=== PATIENT | female | born 1950 | race Caucasian/White ===

== ENCOUNTER 2019-03-26 08:21 | Emergency (ER) | payer MEDICARE, BC, SELFPAY ==
[2019-03-26 08:26] VITALS: BP 150/83; PULSE 73; RESP 16; TEMP 36.6; O2SAT 97
--- NOTE | 2019-03-26 08:34 | ED.GENADUL_ITS ---
Discharge Plan Disposition Patient Disposition: HOME Condition: Stable Discharge Details Chief Complaint: GenMedical Clinical Impression: Cellulitis of foot, left Primary Care Provider: Jesus Cardona ED Provider: Orlando Barbosa Home Meds and New Rx's Prescriptions: New cephalexin 500 mg tablet 500 mg PO TID Qty: 21 RF: 0 No Action amlodipine 2.5 mg Tablet RF: 0 Discharge Instructions Instructions: Cellulitis (ED) Additional Instructions: if not better by next week see your primary care provider if you feel you are becoming more ill, have severe worsening of pain, or redness spreading up the leg return to the emergency department Medical Decision Making 68 yo female comes in with left dorsal surface redness. no fevers or systemic symptoms and no recent falls or trauma, no severe pain. She has an area of erythema on the dorsum of the left foot 3x3cm and not significantly warm to touch. Sensation and pulses intact. No evidence of skin breakdown. Will tx as possible cellulitis though could also be localized dermatitis. She has no swelling of the leg to suggest dvt and no severe pain or fevers and appears well so doubt sepsis or nec fasc. Advised f/u with pcp and return precautions given Differential Diagnosis cellulitis, sebaceous cyst HPI General Mode of arrival: ambulatory . Date/Time Provider Initiated Documentation: 03/26/19 08:23 . Limitations to Documentation: no limitations . Information obtained by: patient . History of Present Illness 68 year old F presents to the emergency department with the chief complaint of left foot redness, described as moderate, Quality is described as aching, and is localized to the left and lower extremity. Patient reports no radiation. Patient started experiencing this day(s) (1) and it has been constant. No relieving factors improve symptom(s), No exacerbating factors reported . Patient notes no other symptoms.. Patient did receive the following treatments prior to arrival, none Related Data Home Medications Medication Instructions Recorded Confirmed amlodipine 03/26/19 cephalexin 500 mg PO TID #21 tab 03/26/19 Previous Rx's Medication Instructions Recorded cephalexin 500 mg PO TID #21 tab 03/26/19 Allergies Allergy/AdvReac Type Severity Reaction Status Date / Time acetaminophen [From Percocet] Allergy Mild Nausea Unverified 03/26/19 08:30 codeine Allergy Mild Nausea Unverified 03/26/19 08:30 oxycodone [From Percocet] Allergy Mild Nausea Unverified 03/26/19 08:30 General Stated Complaint: GenMedical MICHAEL: 4 Review of Systems Review of Systems All systems reviewed & are unremarkable except as noted in HPI and below Constitutional Denies chills, Denies fever(s) and Denies weakness Cardiovascular Denies chest pain and Denies dyspnea Respiratory Denies dyspnea Gastrointestinal Denies abdominal pain and Denies vomiting Neurologic Denies weakness PFSH Social History Smoking/Tobacco Use Status: Never Drug use: Occasionally Substance use type: does not use Do you feel safe at home: Yes Do you feel safe in your relationship?: Yes Exam Const General: no acute distress Orientation: alert HENMT Head: normal to inspection Ears: external ears normal General nose exam: external nose normal Mouth: moist mucous membranes Eyes General: appearance normal, both eyes and all related structures Neck Neck: normal visual inspection Resp Effort & Inspection: normal respiratory effort and able to speak in complete sentences Cardio Rate: regular rate Skin General skin exam: elasticity normal Neuro General: alert and oriented x3 Extrem General: full ROM and normal capillary refill Psych Mental Status: mental status grossly normal Course Vital Signs Temperature 36.6 C 03/26/19 08:26 Pulse 73 03/26/19 08:26 Respiratory Rate 16 03/26/19 08:26 Blood Pressure 150/83 H 03/26/19 08:26 Pulse Oximetry 97 03/26/19 08:26 Temperature 36.6 C 03/26/19 08:26 Temperature Source Temporal Artery Scan 03/26/19 08:26 Pulse 73 03/26/19 08:26 Respiratory Rate 16 03/26/19 08:26 Respiratory Effort 03/26/19 08:26 Blood Pressure 150/83 H 03/26/19 08:26 Blood Pressure Position Sitting 03/26/19 08:26 Pulse Oximetry 97 03/26/19 08:26 Oxygen Delivery Method Room Air 03/26/19 08:26 Oxygen Flow Rate 0 03/26/19 08:26
[2019-03-26 08:35] VITALS: RESP 14
== END 2019-03-26 08:40 | disposition home or self-care (01) ==
PROVIDERS: Emergency Provider Emergency Medicine; PCP Internal Medicine
DX: L03.116 Cellulitis of left lower limb (principal)
CPT/HCPCS: 99283

== ENCOUNTER 2019-04-01 09:47 | Emergency (ER) | payer MEDICARE, BC, SELFPAY ==
[2019-04-01] VITALS (7 sets, daily range): BP systolic 135–170; BP diastolic 67–82; PULSE 66–72; RESP 16; TEMP 36.6; O2SAT 95–97
--- NOTE | 2019-04-01 10:16 | DI.RAD_ITS ---
SYMPTOM/DIAGNOSIS: CELLULITIS, FOOT PAIN LEFT FOOT: Three views. No acute fracture or dislocation, lytic or sclerotic lesion is seen. No radiographic evidence to suggest acute osteomyelitis present. There are moderate degenerative changes seen in the foot particularly the mid foot and the first tarsal metatarsal joints. There is a moderate size spur at the plantar surface of the calcaneus. No radiopaque foreign bodies are seen in the soft tissues. IMPRESSION: No acute abnormality. No radiographic findings to suggest acute osteomyelitis.
--- NOTE | 2019-04-01 10:17 | ED.GENADUL_ITS ---
Discharge Plan Disposition Patient Disposition: HOME Condition: Stable Discharge Details Chief Complaint: GenMedical Clinical Impression: Cellulitis Primary Care Provider: Bety,Local ED Provider: Dany Shay Home Meds and New Rx's Prescriptions: New sulfamethoxazole-trimethoprim [Bactrim DS] 800-160 mg tablet 1 tab PO Q12H Qty: 20 RF: 0 cephalexin 500 mg capsule 500 mg PO QID Qty: 30 RF: 0 No Action amlodipine 2.5 mg Tablet 2.5 mg DAILY RF: 0 cephalexin 500 mg tablet 500 mg PO TID Qty: 21 RF: 0 Discharge Instructions Additional Instructions: Please keep a blood pressure log for the next week your blood pressure was mildly elevated in the emergency department your primary care doctor may need to titrate your hypertensive medications. We are going to continue and add a new antibiotic for your cellulitis please continue the cephalexin for an additional week & take Bactrim for 10 days. Please see a provider or the emergency department in 4 days for a wound check . return sooner for fever chills increasing pain or other concern Discharge Data Discharge Date/Time-TO BE ENTERED AT DEPARTURE: 04/01/19 11:09 Medical Decision Making 68 year-old female currently being treated for left foot cellulitis with continued redness mild tenderness in the setting of distant foot injections and fracture. Patient nontoxic with some mild tenderness to palpation to her midfoot will obtain an x-ray and if normal extend Keflex and add Bactrim and have patient follow-up for a wound check in the next 3 or 4 days. 1044 AM patient resting comfortably x-ray with no acute findings left foot. Patient with evidence of continued cellulitis I do not feel meets criteria for inpatient IV antibiotics at this time we will add Bactrim for expanded MRSA coverage and add another week of Keflex. Patient to return to the emergency department in 4 days for wound check or sooner for fever chills increasing redness or pain. Patient to follow-up with primary care and podiatry. HPI 68-year-old female past medical history of hypertension on amlodipine with 1 week of left foot redness and pain seen 6 days ago here at the [facility] emergency department and started on cephalexin patient returns pain is improved and the redness has decreased but not resolved and her last dose of antibiotics is tonight. 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 No shortness of breath chest pain fever chills nausea vomiting diarrhea loss of consciousness. General Date/Time Provider Initiated Documentation: 04/01/19 09:57 . Related Data Home Medications Medication Instructions Recorded Confirmed amlodipine 2.5 mg DAILY 03/26/19 04/01/19 cephalexin 500 mg PO TID #21 tab 03/26/19 04/01/19 cephalexin 500 mg PO QID #30 cap 04/01/19 sulfamethoxazole-trimethoprim 1 tab PO Q12H #20 tab 04/01/19 [Bactrim DS] Previous Rx's Medication Instructions Recorded cephalexin 500 mg PO TID #21 tab 03/26/19 cephalexin 500 mg PO QID #30 cap 04/01/19 sulfamethoxazole-trimethoprim 1 tab PO Q12H #20 tab 04/01/19 [Bactrim DS] Allergies Allergy/AdvReac Type Severity Reaction Status Date / Time acetaminophen [From Percocet] Allergy Mild Nausea Unverified 03/26/19 08:30 codeine Allergy Mild Nausea Unverified 03/26/19 08:30 oxycodone [From Percocet] Allergy Mild Nausea Unverified 03/26/19 08:30 General Stated Complaint: GenMedical MICHAEL: 4 Review of Systems Review of Systems All systems reviewed & are unremarkable except as noted in HPI and below PFSH Social History Smoking/Tobacco Use Status: Never Drug use: Occasionally Substance use type: does not use Do you feel safe at home: Yes Do you feel safe in your relationship?: Yes Exam Const General: cooperative, healthy appearing, no acute distress, well developed and well groomed Nutritional Appearance: well nourished Orientation: alert, awake and oriented x3 HENMT Head: normal to inspection, normocephalic and atraumatic Ears: hearing grossly normal bilaterally and external ears normal General nose exam: external nose normal Face and sinus: normal facial exam Mouth: oral mucosae normal and lip normal Chest Chest: normal inspection of the chest Resp Effort & Inspection: normal respiratory effort and able to speak in complete sentences Cardio Jugular venous pressure: no JVD Rate: regular rate GI Inspection: normal to inspection Palpation: soft, firm and guarding Percussion: normal to percussion Skin General skin exam: no rashes or lesions noted Lesions: no lesions Rashes: no rashes Trauma: no lacerations or abrasions Neuro General: alert, awake and oriented x3 Cognition: normal cognition Motor: muscle tone normal throughout Sensory Exam: no sensory deficits noted Extrem General: normal to inspection and other (Left foot with a 3 cm diameter area of redness without fluctuance or indura) Right upper extremity: normal to inspection Left upper extremity: normal to inspection Right lower extremity: normal to inspection Left lower extremity: normal to inspection Psych Appearance: grossly normal Mental Status: mental status grossly normal Speech and Movement: speech and movement normal Course Vital Signs Temperature 36.6 C 04/01/19 09:53 Pulse 71 04/01/19 09:53 Respiratory Rate 16 04/01/19 09:53 Blood Pressure 168/82 H 04/01/19 09:53 Pulse Oximetry 96 04/01/19 09:53 Temperature 36.6 C 04/01/19 09:53 Temperature Source Skin 04/01/19 09:53 Pulse 71 04/01/19 09:53 Respiratory Rate 16 04/01/19 09:53 Respiratory Effort 04/01/19 10:00 Blood Pressure 168/82 H 04/01/19 09:53 Blood Pressure Position Sitting 04/01/19 09:53 Pulse Oximetry 96 04/01/19 09:53 Oxygen Delivery Method Room Air 04/01/19 09:53 Oxygen Flow Rate 0 04/01/19 09:53
== END 2019-04-01 11:09 | disposition home or self-care (01) ==
PROVIDERS: Emergency Provider Emergency Medicine
DX: L03.116 Cellulitis of left lower limb (principal); I10 Essential (primary) hypertension
CPT/HCPCS: 99283; 73630

== ENCOUNTER 2022-05-06 16:27 | Emergency (ER) | payer MEDICARE, BC, SELFPAY ==
[2022-05-06] VITALS (39 sets, daily range): BP systolic 134–166; BP diastolic 63–112; PULSE 57–80; RESP 11–26; TEMP 36.4; O2SAT 95–99
--- NOTE | 2022-05-06 16:15 | RT.EKG_ITS ---
APPROVED REPORT Exam: Resting ECG Reason for Exam: chest pain Patient Location: E HR:72 bpm ECG Measurements Heart Rate 72 AXIS IL 171 P 22 QRSd 81 QRS -1 QT 400 T 36 QTc 437 Conclusion Sinus rhythm...normal P axis, V-rate 60- 99
--- NOTE | 2022-05-06 16:57 | ED.GENADUL_ITS ---
Discharge Plan Disposition Patient Disposition: HOME Condition: Improving Discharge Details Clinical Impression: Chest pain, atypical, Gastroesophageal reflux disease Primary Care Provider: Lesli Montana ED Provider: Juancarlos Miranda Home Meds and New Rx's Prescriptions: New pantoprazole [Protonix] 20 mg tablet,delayed release (DR/EC) 20 mg PO DAILY 14 Days Qty: 14 0RF Continued amlodipine 2.5 mg Tablet 2.5 mg DAILY Discharge Instructions Instructions: Chest Pain (ED), GERD (Gastroesophageal Reflux Disease) (ED) Additional Instructions: Avoid fatty, fried, tomato-based foods. Avoid eating 2 to 3 hours prior to bedtime. We will trial Protonix as discussed once daily for 2 weeks. Please see the following instructions from Dr. Johnson: Please continue taking all your regular medication. Please take a baby aspirin daily until you are seen by your primary care doctor. Primary care doctor may choose to do some outpatient testing for your heart. Please not hesitate to return if any symptoms are concerning to you. Medical Decision Making <Casa Johnson MD - Last Filed: 05/06/22 19:49> Patient with normal EKG on presentation. Also patient symptom-free on presentation Patient's heart score is low. She is questionable because of her age and 1 because of some hypertension.. Patient will be signed out to my colleague Dr. Miranda a second troponin pending. If this is negative she may be discharged home. <Juancarlos Miranda MD - Last Filed: 05/06/22 21:12> Lab Data Lab results reviewed: Yes I reviewed the patient's lab results. Labs: Received signout from Dr. Johnson. Please see his note regarding details of the initial presentation, exam and plan of care. Patient improved. She had 2 negative troponins. She does describe GERD type symptoms and I will place her on a trial of 2 weeks of PPI. She is stable and appropriate for discharge to home. Laboratory Results - last 24 hr 05/06/22 05/06/22 05/06/22 16:55 16:55 20:09 WBC 7.13 RBC 4.60 Hgb 14.2 Hct 42.3 MCV 92 MCH 30.9 MCHC 33.6 RDW 12.8 Plt Count 268 MPV 9.8 Immature Gran % 0.3 Neutrophils % 65.7 Lymphocytes % 22.3 Monocytes % 10.1 Eosinophils % 1.0 Basophils % 0.6 Nucleated RBC % 0.0 Absolute Neutrophils 4.69 Absolute Lymphocytes 1.59 Absolute Monocytes 0.72 Absolute Eosinophils 0.07 Absolute Basophils 0.04 Sodium 137 Potassium 4.0 Chloride 101 Carbon Dioxide 28.4 Anion Gap 7.6 BUN 22 H Creatinine 0.9 Estimated GFR/1.73 m2 >= 60.00 Glucose 95 Calcium 8.9 Magnesium 2.2 Total Bilirubin 0.4 AST 19 ALT 27 Alkaline Phosphatase 96 Troponin I < 50 < 50 Total Protein 7.6 Albumin 3.7 HPI <Casa Johnson MD - Last Filed: 05/06/22 19:49> General Date/Time Provider Initiated Documentation: 05/06/22 16:57 . HPI Narrative: 71-year-old lady presents to the emergency room for evaluation of substernal discomfort. She states that she got up from the table and felt the sensation. It was mild to moderate. It lasted a total of 20 to 25 minutes. It was not worse with exertion. It resolved spontaneously. She has never had this before. Not associated with any nausea or vomiting. Not associated with any shortness of breath or diaphoresis. Other than some mild hypertension the patient states that she has no past medical history. She is not a smoker. Related Data Home Medications Medication Instructions Recorded Confirmed amlodipine 2.5 mg tablet 2.5 mg DAILY 03/26/19 05/06/22 pantoprazole 20 mg tablet,delayed 20 mg PO DAILY 2 weeks #14 tabs 05/06/22 release (Protonix) Previous Rx's Medication Instructions Recorded pantoprazole 20 mg tablet,delayed 20 mg PO DAILY 2 weeks #14 tabs 05/06/22 release (Protonix) Allergies Allergy/AdvReac Type Severity Reaction Status Date / Time acetaminophen [From Percocet] Allergy Mild Nausea Unverified 05/06/22 16:39 codeine Allergy Mild Nausea Unverified 05/06/22 16:39 oxycodone [From Percocet] Allergy Mild Nausea Unverified 05/06/22 16:39 General Stated Complaint: Chest Pain MICHAEL: 2 Review of Systems <Casa Johnson MD - Last Filed: 05/06/22 19:49> Narrative: Constitutional negative for malaise and fever, no chills no fatigue HEENT negative Cardiovascular see HPI no palpitations Respiratory no shortness of breath, no cough HEENT no abdominal pain no nausea no vomiting no diarrhea negative MSK no myalgias or arthralgias Skin no rashes Neuro no headaches or paresthesias no focal weakness Psych no anxiety related to her discomfort but otherwise negative Endocrine no weakness no weight gain Hematological not on blood thinners PFSH <Casa Johnson MD - Last Filed: 05/06/22 19:49> All Active Problems (Updated 05/06/22 @ 21:09 by Juancarlos Miranda MD) Chest pain, atypical (Acute) Gastroesophageal reflux disease (Chronic) Social History Smoking/Tobacco Use Status: Never Smoking risk assessment performed?: Yes Alcohol Intake: current Alcohol Intake frequency: holidays/special occasions only Drug use: Occasionally Substance use type: does not use Do you feel safe at home: Yes Do you feel safe in your relationship?: Yes Exam <Casa Johnson MD - Last Filed: 05/06/22 19:49> Narrative Exam Narrative: Awake alert Energy x3, no acute distress pleasant Normocephalic atraumatic PERRLA EOMI MMM anicteric Neck no JVD Chest is clear to auscultation bilaterally Heart regular rhythm and rate Abdomen soft nondistended nontender Extremities no edema Neuro grossly intact Skin no rash Course <Casa Johnson MD - Last Filed: 05/06/22 19:49> Vital Signs Vital signs: Vital Signs Temperature 36.4 C L 05/06/22 16:32 Pulse 80 05/06/22 16:32 Respiratory Rate 18 05/06/22 16:32 Blood Pressure 149/94 H 05/06/22 16:32 Pulse Oximetry 98 05/06/22 16:32 Temperature 36.4 C L 05/06/22 16:32 Temperature Source Oral 05/06/22 16:32 Pulse 80 05/06/22 16:32 Respiratory Rate 21 05/06/22 16:36 Respiratory Effort Non-Labored 05/06/22 16:36 Respiratory Depth Normal 05/06/22 16:36 Respiratory Pattern Normal 05/06/22 16:36 Blood Pressure 149/94 H 05/06/22 16:32 Blood Pressure Position Sitting 05/06/22 16:32 Pulse Oximetry 98 05/06/22 16:32 Oxygen Delivery Method Room Air 05/06/22 16:32 Oxygen Flow Rate 0 05/06/22 16:32 Pain Level 0 05/06/22 16:32 Sign Out <Casa Johnson MD - Last Filed: 05/06/22 19:49> Sign Out Data: Sign Out Comment: 71-year-old lady with atypical chest discomfort. Heart score is low. Initial EKG is totally normal no signs of ischemia. First troponin negative. Rest of blood work within normal limits. Patient signed out to Dr. Miranda. If the second troponin is negative the patient may be discharged home. Last updated by Casa Johnson MD at 05/06/22 19:55 PAWSS <Casa Johnson MD - Last Filed: 05/06/22 19:49> Have you Been Recently Intoxicated or Drunk Within the Last 30 days?: No Have you Ever Experienced Previous Episodes of Alcohol Withdrawal?: No Have you ever Experienced Withdrawal Seizures?: No Have you ever Experienced Delirium Tremens(DT)s?: No Have you ever undergone Alcohol Rehabilitation Treatment (i.e, inpt ot outpatient treatment programs)?: No Have you ever Experienced Blackouts?: No Have you ever Combined Alcohol with other Downers within the last 90 days?: No Have you ever Combined Alcohol with any other Substance of Abuse during the last 90 days?: No Result: 0 <Juancarlos Miranda MD - Last Filed: 05/06/22 21:12> Result: 0
--- NOTE | 2022-05-06 17:00 | DI.RAD_ITS ---
Exam(s) XR CHEST 2V PA LATERAL EXAM: XR CHEST 2V PA LATERAL CLINICAL HISTORY: chest pain. TECHNIQUE: 2D digital imaging was performed. COMPARISON: No exams were available for comparison FINDINGS: 2 views: Heart size is normal. The mediastinum is not widened. Lungs are clear. No infiltrates nor pleural effusions. IMPRESSION: No acute pulmonary findings. DATA REPOSITORY: RADIATION DOSE DELIVERED:
[2022-05-06] MEDS: Aspirin 81 MG CHEW CH (17:24)
[2022-05-06 17:42] LABS: Abs Immature Grans 0.02 10^3/uL (0.0-0.06); Absolute Basophil Count 0.04 10^3/uL (0.0-0.2); Absolute Eosinophil Count 0.07 10^3/uL (0.0-0.7); Absolute Lymphocyte Count 1.59 10^3/uL (1.2-3.4); Absolute Monocyte Count 0.72 10^3/uL (0.1-0.8); Absolute Neutrophil Count 4.69 10^3/uL (1.2-6.7); Basophils % 0.6; HCT 42.3 % (36.0-46.0); HGB 14.2 g/dL (11.2-15.7); Immature Grans % 0.3; Lymphocytes % 22.3; MCH 30.9 pg (27.0-33.0); MCHC 33.6 % (32.0-36.0); MCV 92 fL (80-95); MPV 9.8 fL (8.0-11.0); Monocytes % 10.1; Neutrophils % 65.7; Platelet Count 268 10^3/uL (130-400); RDW 12.8 % (11.7-14.6); RDW-SD 43.4 fL; WBC 7.13 10^3/uL (4.4-10.8)
[2022-05-06 17:57] LABS: ALT 27 U/L (14-59); AST 19 U/L (15-37); Albumin 3.7 g/dL (3.4-5.0); Alkaline Phosphatase 96 U/L (46-116); Anion Gap 7.6 mmol/L (3-11); BUN 22 mg/dL (7-18); Bilirubin, Total 0.4 mg/dL (0.2-1.0); CO2 28.4 mmol/L (21.0-32.0); CREATININE 0.9 mg/dL (0.55-1.02); Calcium 8.9 mg/dL (8.5-10.1); Chloride 101 mmol/L (98-107); Glucose 95 mg/dL (74-106); Magnesium 2.2 mg/dL (1.8-2.4); Sodium 137 mmol/L (136-145); Total Protein 7.6 g/dL (6.4-8.2); Troponin I < 50 ng/L (<or=60)
--- NOTE | 2022-05-06 18:30 | DI.VRAD_ITS ---
PROCEDURE INFORMATION: Exam: XR Chest Exam date and time: 05/06/2022 5:59 PM Age: 71 years old Clinical indication: Other: Chest pain TECHNIQUE: Imaging protocol: Radiologic exam of the chest. Views: 2 views. COMPARISON: No relevant prior studies available. FINDINGS: Lungs: Hyperinflation No consolidation. Pleural spaces: Unremarkable. No pleural effusion. No pneumothorax. Heart/Mediastinum: Unremarkable. No cardiomegaly. Bones/joints: Unremarkable. IMPRESSION: No acute findings. Dictated and Authenticated by: Radha Mcgee MD. Ordering:NIMISHA Cormier MD
[2022-05-06 20:35] LABS: Troponin I < 50 ng/L (<or=60)
[2022-05-06] MEDS: Pantoprazole 40 MG TABCR PO (21:11)
== END 2022-05-06 21:15 | disposition home or self-care (01) ==
PROVIDERS: Emergency Medicine; Emergency Provider Emergency Medicine; PCP Internal Medicine
DX: K21.9 Gastro-esophageal reflux disease without esophagitis (principal); R07.89 Other chest pain; I10 Essential (primary) hypertension
CPT/HCPCS: 36415; 80053; 93005; 99284; 71046; 83735; 84484; 85025; 93010; 99285